=== PATIENT | female | born 1940 | race Caucasian/White ===

== ENCOUNTER 2018-09-17 13:54 | Inpatient (IN) | payer MEDICARE, OTHER ==
[2018-09-17] MEDS: IBUPROFEN 800 MG TAB PO (14:11)
[2018-09-17] MEDS: ACETAMINOPHEN 500 MG TAB PO (14:12)
[2018-09-17 14:15] LABS: ADD MAN DIFF? NO
[2018-09-17 14:20] LABS: WHITE BLOOD COUNT 18.3 10^3/ul (4.8-10.8)
[2018-09-17 14:20] LABS: BASOPHIL # 0.1 10^3/ul (0.0-0.1); BASOPHILS % 0.3 % (0.0-2.0); EOSINOPHILS # 0.1 10^3/ul (0.0-0.5); EOSINOPHILS % 0.3 % (0.0-7.0); HEMATOCRIT 40.2 % (37.0-47.0); HEMOGLOBIN 12.8 g/dl (12.0-16.0); LYMPHOCYTES # 1.3 10^3/ul (0.8-2.9); LYMPHOCYTES % 6.9 % (15.0-51.0); MEAN CORPUSCULAR HEMOGLOBIN 32.5 pg (29.0-33.0); MEAN CORPUSCULAR HGB CONC 31.8 g/dl (32.0-37.0); MEAN PLATELET VOLUME 10.3 fl (7.4-10.4); MONOCYTE # 0.6 10^3/ul (0.3-0.9); MONOCYTES % 3.2 % (0.0-11.0); NEUTROPHIL # 16.3 10^3/ul (1.6-7.5); NEUTROPHILS % 88.9 % (39.0-77.0); PLATELET COUNT 319 10^3/UL (140-415); RED BLOOD COUNT 3.94 10^6/ul (4.20-5.40); RED CELL DISTRIBUTION WIDTH 13.1 % (11.5-14.5)
[2018-09-17] MEDS: IPRATROPIUM (NEB) 0.5 MG/2.5 ML AMP INH (14:20)
[2018-09-17] MEDS: ALBUTEROL 0.5% (NEB) 2.5 MG/0.5 ML AMP INH (14:20)
[2018-09-17] MEDS: SODIUM CHLORIDE 0.9% 1L BAG IV* (14:31)
[2018-09-17] MEDS: METHYLPREDNISOLONE 125 MG INJ IV (14:32)
[2018-09-17] MEDS: VANCOMYCIN 1 GM (PMX) 250 ML IVPB (14:32)
[2018-09-17 14:36] LABS: PARTIAL THROMBOPLASTIN TIME 27.4 Sec (23.0-35.0)
[2018-09-17 14:39] LABS: INR 1.03; PROTIME 13.6 Sec (11.9-14.9); PT RATIO 1.1
[2018-09-17 14:42] LABS: ALANINE AMINOTRANSFERASE 25 IU/L (13-69); ALBUMIN 4.5 g/dl (3.3-4.9); ALBUMIN/GLOBULIN RATIO 1.15; ALKALINE PHOSPHATASE 69 IU/L (42-121); AMYLASE 95 U/L (11-123); ANION GAP 12 (5-13); ASPARTATE AMINO TRANSFERASE 30 IU/L (15-46); BILIRUBIN,INDIRECT 0.4 mg/dl (0-1.1); BILIRUBIN,TOTAL 0.4 mg/dl (0.2-1.3); BLOOD UREA NITROGEN 24 mg/dl (7-20); CALCIUM 8.3 mg/dl (8.4-10.2); CARBON DIOXIDE 30 mmol/L (21-31); CHLORIDE 100 mmol/L (97-110); GLUCOSE 160 mg/dl (70-220); LIPASE 33 U/L (23-300); POTASSIUM 4.1 mmol/L (3.5-5.1); SODIUM 142 mmol/L (135-144); TOTAL PROTEIN 8.4 g/dl (6.1-8.1)
[2018-09-17 14:45] LABS: LACTIC ACID 2.1 mmol/L (0.5-2.0)
[2018-09-17 14:46] LABS: Allen Test ACCEPTAB; Arterial Base Excess 0.1 mmol/L (-3.0-3); Arterial Blood Gas Oxygen Sat 85.2 mmHG (95.0-100.0); Arterial COHb 0.8 % (0.0-3.0); Arterial Fraction of Oxyhgb 84.5 % (93.0-99.0); Arterial HCO3 23.8 mmol/L (22.0-26.0); Arterial MetHb 0 % (0.0-1.5); Arterial Total Hemglobin 13.2 g/dl (12.0-18.0); Arterial pCO2 35.9 mmhg (35-45); MODE HFNC; Site Right Radial
[2018-09-17 14:53] LABS: TROPONIN-I < 0.012 ng/ml (0.000-0.120)
[2018-09-17] MEDS ORDERED: ONDANSETRON 4 MG INJ IV (16:30)
[2018-09-17] MEDS: CEFEPIME 2GM/50 ML (PMX) 50 ML IVPB (16:34)
[2018-09-17 16:37] LABS: LACTIC ACID 1.9 mmol/L (0.5-2.0)
[2018-09-17 16:47] LABS: AADO2 Arterial 602.1 mmHg (7.0-24.0); Allen Test ACCEPTAB; Arterial Base Excess 2.1 mmol/L (-3.0-3); Arterial Blood Gas Oxygen Sat 91.8 mmHG (95.0-100.0); Arterial COHb 0.1 % (0.0-3.0); Arterial Fraction of Oxyhgb 91.4 % (93.0-99.0); Arterial HCO3 27.1 mmol/L (22.0-26.0); Arterial MetHb 0.3 % (0.0-1.5); Arterial Total Hemglobin 12.4 g/dl (12.0-18.0); Arterial pCO2 43.9 mmhg (35-45); MODE HFNC; Site Right Radial
[2018-09-17 19:00] LABS: LACTIC ACID 2.3 mmol/L (0.5-2.0)
[2018-09-17] MEDS ORDERED: ACETAMINOPHEN/CODEINE #3 TAB PO (20:30)
[2018-09-17] MEDS: METOPROLOL 25 MG TAB PO (21:00)
[2018-09-17] MEDS: SOD CHLORIDE 0.9% 2,400 ML IV (21:25)
[2018-09-17] MEDS: ALBUTEROL HFA 8 GM INHALER INH (21:41)
[2018-09-17] MEDS: GABAPENTIN 400 MG CAP PO (21:41)
[2018-09-17] MEDS: QUETIAPINE 100 MG TAB PO (21:41)
[2018-09-17] MEDS: ASPIRIN (EC) 81 MG TAB PO (21:41)
[2018-09-17] MEDS: IBUPROFEN 600 MG TAB PO (21:42)
[2018-09-17] MEDS: AMLODIPINE 10 MG TAB PO (21:42)
[2018-09-17] MEDS: CHOLECALCIFEROL 2,000 UNIT CAP PO (21:42)
[2018-09-17] MEDS: ZOLPIDEM 5 MG TAB PO (21:45)
[2018-09-17] MEDS: DIAZEPAM 5 MG TAB PO (21:45)
[2018-09-17] MEDS: ISOSORBIDE MONONITRATE(SR)30 MG TAB PO (21:47)
[2018-09-17] MEDS: ENOXAPARIN 40 MG/0.4 ML SYG SC (21:47)
[2018-09-17] MEDS: SOD CHLORIDE 0.9% 1,000 ML IV (21:53)
[2018-09-17] MEDS: ACETAMINOPHEN 325 MG TAB PO (22:13)
[2018-09-17 22:56] LABS: ADD UMIC YES; UR ASCORBIC ACID NEGATIVE (NEGATIVE); UR BACTERIA FEW /HPF (NONE SEEN); UR BILIRUBIN (Dip) NEGATIVE (NEGATIVE); UR BLOOD (Dip) 1+ mg/dL (NEGATIVE); UR CLARITY CLOUDY (CLEAR); UR COLOR YELLOW (YELLOW); UR GLUCOSE (Dip) NEGATIVE (NEGATIVE); UR KETONES (Dip) NEGATIVE (NEGATIVE); UR LEUKOCYTE ESTERASE (Dip) 3+ Leu/ul (NEGATIVE); UR MUCUS FEW /HPF (NONE SEEN); UR NITRITE (Dip) NEGATIVE (NEGATIVE); UR NONSQUAMOUS EPITHELIAL CELL 4 /HPF (NONE SEEN); UR RBC 17 /HPF (0-5); UR SQUAMOUS EPITHELIAL CELL FEW /HPF (FEW); UR TOTAL PROTEIN (Dip) 2+ mg/dl (NEGATIVE); UR UROBILINOGEN (Dip) NEGATIVE (NEGATIVE); UR WBC > 182 /HPF (0-5)
[2018-09-17 22:57] LABS: IRON 16 ug/dl (35-150)
[2018-09-17] MEDS: PIPER-TAZO 3.375 GM IV (PMX) 100 ML IVPB (22:57)
[2018-09-17 23:06] LABS: LACTIC ACID 2.1 mmol/L (0.5-2.0)
[2018-09-17 23:07] LABS: % IRON SATURATION 5 % SAT (22-52); TOTAL IRON BINDING CAPACITY 307 ug/dl (241-421)
[2018-09-17 23:10] LABS: ALBUMIN 3.8 g/dl (3.3-4.9)
[2018-09-17 23:10] LABS: MAGNESIUM 1.3 mg/dl (1.7-2.5)
[2018-09-17 23:40] LABS: THYROID STIMULATING HORMONE 0.931 MIU/L (0.465-4.680)
[2018-09-18 05:02] LABS: ADD MAN DIFF? NO
[2018-09-18 05:08] LABS: WHITE BLOOD COUNT 16.2 10^3/ul (4.8-10.8)
[2018-09-18 05:08] LABS: BASOPHILS % 0.2 % (0.0-2.0); HEMATOCRIT 32.6 % (37.0-47.0); HEMOGLOBIN 10.4 g/dl (12.0-16.0); LYMPHOCYTES # 1.2 10^3/ul (0.8-2.9); LYMPHOCYTES % 7.1 % (15.0-51.0); MEAN CORPUSCULAR HEMOGLOBIN 32.3 pg (29.0-33.0); MEAN CORPUSCULAR HGB CONC 31.9 g/dl (32.0-37.0); MEAN CORPUSCULAR VOLUME 101.2 fl (82.0-101.0); MEAN PLATELET VOLUME 10.7 fl (7.4-10.4); MONOCYTE # 0.5 10^3/ul (0.3-0.9); MONOCYTES % 2.8 % (0.0-11.0); NEUTROPHIL # 14.5 10^3/ul (1.6-7.5); NEUTROPHILS % 89.2 % (39.0-77.0); PLATELET COUNT 254 10^3/UL (140-415); RED BLOOD COUNT 3.22 10^6/ul (4.20-5.40); RED CELL DISTRIBUTION WIDTH 13.1 % (11.5-14.5)
[2018-09-18 05:37] LABS: LACTIC ACID 1.4 mmol/L (0.5-2.0)
[2018-09-18 05:42] LABS: ANION GAP 9 (5-13); BLOOD UREA NITROGEN 22 mg/dl (7-20); CARBON DIOXIDE 27 mmol/L (21-31); CHLORIDE 105 mmol/L (97-110); CREATININE 0.78 mg/dl (0.44-1.00); GLUCOSE 112 mg/dl (70-220); POTASSIUM 4.2 mmol/L (3.5-5.1); SODIUM 141 mmol/L (135-144)
[2018-09-18] MEDS: ALBUTEROL HFA 8 GM INHALER INH ×4 (06:17→17:34)
[2018-09-18] MEDS: PANTOPRAZOLE (EC) 40 MG TAB PO (07:56)
[2018-09-18] MEDS: LEVOTHYROXINE 125 MCG TAB PO (07:56)
[2018-09-18] MEDS: ISOSORBIDE MONONITRATE(SR)30 MG TAB PO ×2 (09:00)
[2018-09-18] MEDS: AMLODIPINE 10 MG TAB PO ×2 (09:00)
[2018-09-18] MEDS: ASPIRIN (EC) 81 MG TAB PO (09:03)
[2018-09-18] MEDS: VANCOMYCIN 1 GM (PMX) 250 ML IVPB (09:03)
[2018-09-18] MEDS: GABAPENTIN 400 MG CAP PO ×4 (09:04→20:18)
[2018-09-18] MEDS: CHOLECALCIFEROL 2,000 UNIT CAP PO (09:04)
[2018-09-18] MEDS: METOPROLOL 25 MG TAB PO ×2 (09:04→20:18)
[2018-09-18] MEDS: IBUPROFEN 600 MG TAB PO ×3 (09:04→20:18)
[2018-09-18] MEDS: SOD CHLORIDE 0.9% 1,000 ML IV ×2 (09:05→22:00)
[2018-09-18] MEDS: PIPER-TAZO 3.375 GM IV (PMX) 100 ML IVPB ×2 (13:47→17:34)
[2018-09-18] MEDS: [UNRECOGNIZED DRUG - REMARK] XX ×2 (16:31→23:24)
[2018-09-18] MEDS: QUETIAPINE 100 MG TAB PO (20:17)
[2018-09-18] MEDS: SAVAYSA 30 MG PO (20:17)
[2018-09-18] MEDS: ZOLPIDEM 5 MG TAB PO (21:27)
[2018-09-18] MEDS: MAGNESIUM SULFATE 2 GM/50 ML 50 ML IVPB (21:27)
[2018-09-18] MEDS ORDERED: GLUCOSE GEL 15 GRAM TUBE PO ×2 (22:30)
[2018-09-18] MEDS ORDERED: GLUCOSE GEL 15 GRAM TUBE BUCCAL (22:30)
[2018-09-18] MEDS ORDERED: DEXTROSE 50% 50 ML SYRINGE IV ×2 (22:30)
[2018-09-18] MEDS ORDERED: GLUCAGON 1 MG INJ IM (22:30)
[2018-09-18] MEDS: DIAZEPAM 5 MG TAB PO (22:37)
[2018-09-18] MEDS: METHYLPREDNISOLONE 125 MG INJ IV (22:38)
[2018-09-18] MEDS: ALBUTEROL/IPRATROPIUM (NEB) 3 ML AMP HHN (22:43)
[2018-09-19] MEDS: PIPER-TAZO 3.375 GM IV (PMX) 100 ML IVPB ×4 (00:33→17:52)
[2018-09-19] MEDS: ALBUTEROL HFA 8 GM INHALER INH ×2 (00:34→05:48)
[2018-09-19 05:38] LABS: ABNORMAL IP MESSAGE 1; ADD MAN DIFF? NO; BASOPHILS % 0.1 % (0.0-2.0); HEMATOCRIT 32.1 % (37.0-47.0); HEMOGLOBIN 10.1 g/dl (12.0-16.0); LYMPHOCYTES # 0.5 10^3/ul (0.8-2.9); LYMPHOCYTES % 3.4 % (15.0-51.0); MEAN CORPUSCULAR HEMOGLOBIN 32.2 pg (29.0-33.0); MEAN CORPUSCULAR HGB CONC 31.5 g/dl (32.0-37.0); MEAN CORPUSCULAR VOLUME 102.2 fl (82.0-101.0); MEAN PLATELET VOLUME 11.5 fl (7.4-10.4); MONOCYTE # 0.2 10^3/ul (0.3-0.9); MONOCYTES % 1.1 % (0.0-11.0); NEUTROPHIL # 14.8 10^3/ul (1.6-7.5); NEUTROPHILS % 94.6 % (39.0-77.0); PLATELET COUNT 227 10^3/UL (140-415); RED BLOOD COUNT 3.14 10^6/ul (4.20-5.40); RED CELL DISTRIBUTION WIDTH 13.6 % (11.5-14.5)
[2018-09-19 05:38] LABS: WHITE BLOOD COUNT 15.7 10^3/ul (4.8-10.8)
[2018-09-19 05:40] LABS: POSITIVE DIFF @See below
[2018-09-19] MEDS: SOD CHLORIDE 0.9% 1,000 ML IV ×2 (05:48→21:32)
[2018-09-19 06:08] LABS: LACTIC ACID 1.4 mmol/L (0.5-2.0)
[2018-09-19] MEDS: PANTOPRAZOLE (EC) 40 MG TAB PO (06:27)
[2018-09-19] MEDS: LEVOTHYROXINE 125 MCG TAB PO (06:27)
[2018-09-19 06:32] LABS: ANION GAP 10 (5-13); BLOOD UREA NITROGEN 19 mg/dl (7-20); CALCIUM 6.6 mg/dl (8.4-10.2); CARBON DIOXIDE 27 mmol/L (21-31); CHLORIDE 106 mmol/L (97-110); CREATININE 0.86 mg/dl (0.44-1.00); GLUCOSE 161 mg/dl (70-220); MAGNESIUM 1.9 mg/dl (1.7-2.5); PHOSPHORUS 3.6 mg/dl (2.5-4.9); POTASSIUM 4.1 mmol/L (3.5-5.1); SODIUM 143 mmol/L (135-144)
[2018-09-19 07:22] LABS: AADO2 Arterial 244.8 mmHg (7.0-24.0); Allen Test ACCEPTAB; Arterial Base Excess 0.1 mmol/L (-3.0-3); Arterial Blood Gas Oxygen Sat 90.5 mmHG (95.0-100.0); Arterial COHb 0.4 % (0.0-3.0); Arterial HCO3 25.5 mmol/L (22.0-26.0); Arterial MetHb 0.1 % (0.0-1.5); Arterial Total Hemglobin 11.3 g/dl (12.0-18.0); MODE HFNC; Site Right Radial
[2018-09-19] MEDS: ALBUTEROL/IPRATROPIUM (NEB) 3 ML AMP HHN ×3 (08:00→20:40)
[2018-09-19] MEDS: IBUPROFEN 600 MG TAB PO ×3 (08:25→21:24)
[2018-09-19] MEDS: INSULIN ASPART [NOVOLOG] 3 ML PEN SC ×4 (08:25→20:53)
[2018-09-19] MEDS: ASPIRIN (EC) 81 MG TAB PO (08:26)
[2018-09-19] MEDS: GABAPENTIN 400 MG CAP PO ×4 (08:26→21:22)
[2018-09-19] MEDS: CHOLECALCIFEROL 2,000 UNIT CAP PO (08:26)
[2018-09-19] MEDS: MAGNESIUM SULFATE 2 GM/50 ML 50 ML IVPB (08:29)
[2018-09-19] MEDS: [UNRECOGNIZED DRUG - REMARK] XX (08:29)
[2018-09-19] MEDS: SAVAYSA 30 MG PO (08:29)
[2018-09-19] MEDS: VANCOMYCIN 1 GM (PMX) 250 ML IVPB (08:31)
[2018-09-19] MEDS: AMLODIPINE 10 MG TAB PO (08:32)
[2018-09-19] MEDS: METOPROLOL 25 MG TAB PO ×2 (08:32→21:23)
[2018-09-19] MEDS: ISOSORBIDE MONONITRATE(SR)30 MG TAB PO (08:32)
[2018-09-19] MEDS: INFLUENZA VIRUS VACCINE 0.5 ML (DISPENSING) IM* (10:32)
[2018-09-19] MEDS: SOD FERRIC GLUC COMPLX 125 MG in SOD CHLORIDE 0.9% 100 ML IVPB (16:25)
[2018-09-19] MEDS: METHYLPREDNISOLONE 125 MG INJ IV (21:23)
[2018-09-19] MEDS: ZOLPIDEM 5 MG TAB PO (21:24)
[2018-09-19] MEDS: QUETIAPINE 100 MG TAB PO (21:24)
[2018-09-20] MEDS: ALBUTEROL/IPRATROPIUM (NEB) 3 ML AMP HHN ×4 (01:25→20:12)
[2018-09-20] MEDS: PIPER-TAZO 3.375 GM IV (PMX) 100 ML IVPB ×4 (02:03→18:14)
[2018-09-20] MEDS: SOD CHLORIDE 0.9% 1,000 ML IV (03:18)
[2018-09-20] MEDS: LEVOTHYROXINE 125 MCG TAB PO (06:19)
[2018-09-20 06:34] LABS: ADD MAN DIFF? NO
[2018-09-20 06:40] LABS: WHITE BLOOD COUNT 11.9 10^3/ul (4.8-10.8)
[2018-09-20 06:40] LABS: BASOPHILS % 0.1 % (0.0-2.0); HEMATOCRIT 30.8 % (37.0-47.0); HEMOGLOBIN 9.7 g/dl (12.0-16.0); LYMPHOCYTES % 8.6 % (15.0-51.0); MEAN CORPUSCULAR HGB CONC 31.5 g/dl (32.0-37.0); MEAN CORPUSCULAR VOLUME 101.7 fl (82.0-101.0); MONOCYTE # 0.3 10^3/ul (0.3-0.9); MONOCYTES % 2.4 % (0.0-11.0); NEUTROPHIL # 10.4 10^3/ul (1.6-7.5); NEUTROPHILS % 87.8 % (39.0-77.0); PLATELET COUNT 224 10^3/UL (140-415); RED BLOOD COUNT 3.03 10^6/ul (4.20-5.40); RED CELL DISTRIBUTION WIDTH 13.5 % (11.5-14.5)
[2018-09-20 07:06] LABS: ANION GAP 11 (5-13); BLOOD UREA NITROGEN 19 mg/dl (7-20); CALCIUM 7.3 mg/dl (8.4-10.2); CARBON DIOXIDE 27 mmol/L (21-31); CHLORIDE 106 mmol/L (97-110); CREATININE 0.88 mg/dl (0.44-1.00); GLUCOSE 145 mg/dl (70-220); SODIUM 144 mmol/L (135-144)
[2018-09-20] MEDS: INSULIN ASPART [NOVOLOG] 3 ML PEN SC ×4 (07:52→20:30)
[2018-09-20] MEDS: PANTOPRAZOLE (EC) 40 MG TAB PO (07:52)
[2018-09-20] MEDS: VANCOMYCIN 1 GM (PMX) 250 ML IVPB (08:44)
[2018-09-20] MEDS: SAVAYSA 30 MG PO (08:48)
[2018-09-20] MEDS: ASPIRIN (EC) 81 MG TAB PO (08:49)
[2018-09-20] MEDS: ISOSORBIDE MONONITRATE(SR)30 MG TAB PO (08:49)
[2018-09-20] MEDS: CHOLECALCIFEROL 2,000 UNIT CAP PO (08:49)
[2018-09-20] MEDS: IBUPROFEN 600 MG TAB PO ×3 (08:49→20:27)
[2018-09-20] MEDS: GABAPENTIN 400 MG CAP PO ×4 (08:49→20:27)
[2018-09-20] MEDS: AMLODIPINE 10 MG TAB PO (08:50)
[2018-09-20] MEDS: METOPROLOL 25 MG TAB PO ×2 (08:50→20:28)
[2018-09-20] MEDS: MAGNESIUM SULFATE 2 GM/50 ML 50 ML IVPB (11:14)
[2018-09-20] MEDS: SOD FERRIC GLUC COMPLX 125 MG in SOD CHLORIDE 0.9% 100 ML IVPB (16:32)
[2018-09-20] MEDS: QUETIAPINE 100 MG TAB PO (20:27)
[2018-09-20] MEDS: METHYLPREDNISOLONE 40 MG INJ IV (22:16)
[2018-09-20] MEDS: DIAZEPAM 5 MG TAB PO (22:16)
[2018-09-20] MEDS: ZOLPIDEM 5 MG TAB PO (22:16)
[2018-09-20] MEDS: HYDROCODONE/APAP (5/325) TAB PO (23:43)
[2018-09-21] MEDS: SOD CHLORIDE 0.9% 1,000 ML IV ×2 (00:33→12:30)
[2018-09-21] MEDS: PIPER-TAZO 3.375 GM IV (PMX) 100 ML IVPB ×4 (00:33→18:43)
[2018-09-21] MEDS: ALBUTEROL/IPRATROPIUM (NEB) 3 ML AMP HHN ×4 (02:00→20:47)
[2018-09-21] MEDS: LEVOTHYROXINE 125 MCG TAB PO (05:45)
[2018-09-21] MEDS: INSULIN ASPART [NOVOLOG] 3 ML PEN SC ×4 (07:55→20:33)
[2018-09-21] MEDS: AMLODIPINE 10 MG TAB PO (08:02)
[2018-09-21] MEDS: PANTOPRAZOLE (EC) 40 MG TAB PO (08:02)
[2018-09-21] MEDS: CHOLECALCIFEROL 2,000 UNIT CAP PO (08:02)
[2018-09-21] MEDS: ISOSORBIDE MONONITRATE(SR)30 MG TAB PO (08:03)
[2018-09-21] MEDS: GABAPENTIN 400 MG CAP PO ×4 (08:03→20:32)
[2018-09-21] MEDS: IBUPROFEN 600 MG TAB PO ×3 (08:04→20:31)
[2018-09-21] MEDS: METOPROLOL 25 MG TAB PO ×2 (08:05→20:32)
[2018-09-21] MEDS: ASPIRIN (EC) 81 MG TAB PO (08:05)
[2018-09-21] MEDS: SAVAYSA 30 MG PO (08:06)
[2018-09-21] MEDS: VANCOMYCIN 1 GM (PMX) 250 ML IVPB ×2 (08:06→09:20)
[2018-09-21 08:09] LABS: ADD MAN DIFF? NO
[2018-09-21 08:13] LABS: BASOPHILS % 0.2 % (0.0-2.0); HEMATOCRIT 32.1 % (37.0-47.0); LYMPHOCYTES # 1.4 10^3/ul (0.8-2.9); LYMPHOCYTES % 12.8 % (15.0-51.0); MEAN CORPUSCULAR HEMOGLOBIN 31.7 pg (29.0-33.0); MEAN CORPUSCULAR HGB CONC 31.2 g/dl (32.0-37.0); MEAN CORPUSCULAR VOLUME 101.9 fl (82.0-101.0); MEAN PLATELET VOLUME 11.7 fl (7.4-10.4); MONOCYTE # 0.4 10^3/ul (0.3-0.9); MONOCYTES % 3.4 % (0.0-11.0); NEUTROPHIL # 8.7 10^3/ul (1.6-7.5); NEUTROPHILS % 82.6 % (39.0-77.0); PLATELET COUNT 239 10^3/UL (140-415); RED BLOOD COUNT 3.15 10^6/ul (4.20-5.40); RED CELL DISTRIBUTION WIDTH 13.3 % (11.5-14.5)
[2018-09-21 08:13] LABS: WHITE BLOOD COUNT 10.5 10^3/ul (4.8-10.8)
[2018-09-21 08:23] LABS: AADO2 Arterial 155.4 mmHg (7.0-24.0); Arterial Base Excess 4.6 mmol/L (-3.0-3); Arterial Blood Gas Oxygen Sat 93.6 mmHG (95.0-100.0); Arterial COHb 0.7 % (0.0-3.0); Arterial Fraction of Oxyhgb 92.7 % (93.0-99.0); Arterial HCO3 30.1 mmol/L (22.0-26.0); Arterial MetHb 0.3 % (0.0-1.5); Arterial Total Hemglobin 11.2 g/dl (12.0-18.0); MODE HFNC; Site LB
[2018-09-21 08:26] LABS: ANION GAP 9 (5-13); BLOOD UREA NITROGEN 17 mg/dl (7-20); CALCIUM 7.4 mg/dl (8.4-10.2); CARBON DIOXIDE 29 mmol/L (21-31); CHLORIDE 104 mmol/L (97-110); CREATININE 0.77 mg/dl (0.44-1.00); GLUCOSE 106 mg/dl (70-220); POTASSIUM 4.1 mmol/L (3.5-5.1); SODIUM 142 mmol/L (135-144)
[2018-09-21 08:54] LABS: VANCOMYCIN,TROUGH 6.9 ug/ml (10.0-20.0)
[2018-09-21] MEDS: VANCOMYCIN 500MG/NS (PMX) 100 ML IVPB (13:25)
[2018-09-21] MEDS: SOD FERRIC GLUC COMPLX 125 MG in SOD CHLORIDE 0.9% 100 ML IVPB (17:27)
[2018-09-21] MEDS: QUETIAPINE 100 MG TAB PO (20:31)
[2018-09-21] MEDS: DIAZEPAM 5 MG TAB PO (20:31)
[2018-09-21] MEDS: ZOLPIDEM 5 MG TAB PO (20:33)
[2018-09-21] MEDS: METHYLPREDNISOLONE 40 MG INJ IV (20:33)
[2018-09-22] MEDS: PIPER-TAZO 3.375 GM IV (PMX) 100 ML IVPB ×3 (00:20→12:34)
[2018-09-22] MEDS: SOD CHLORIDE 0.9% 1,000 ML IV ×2 (00:22→13:32)
[2018-09-22] MEDS: ALBUTEROL/IPRATROPIUM (NEB) 3 ML AMP HHN ×4 (01:37→20:34)
[2018-09-22] MEDS: PANTOPRAZOLE (EC) 40 MG TAB PO (05:53)
[2018-09-22] MEDS: LEVOTHYROXINE 125 MCG TAB PO (05:54)
[2018-09-22 06:08] LABS: ADD MAN DIFF? NO
[2018-09-22 06:10] LABS: BASOPHILS % 0.2 % (0.0-2.0); EOSINOPHILS % 0.1 % (0.0-7.0); HEMATOCRIT 34.7 % (37.0-47.0); HEMOGLOBIN 10.9 g/dl (12.0-16.0); LYMPHOCYTES # 1.5 10^3/ul (0.8-2.9); MEAN CORPUSCULAR HEMOGLOBIN 31.8 pg (29.0-33.0); MEAN CORPUSCULAR HGB CONC 31.4 g/dl (32.0-37.0); MEAN CORPUSCULAR VOLUME 101.2 fl (82.0-101.0); MONOCYTE # 0.4 10^3/ul (0.3-0.9); MONOCYTES % 3.7 % (0.0-11.0); NEUTROPHIL # 8.5 10^3/ul (1.6-7.5); NEUTROPHILS % 80.8 % (39.0-77.0); PLATELET COUNT 285 10^3/UL (140-415); RED BLOOD COUNT 3.43 10^6/ul (4.20-5.40); RED CELL DISTRIBUTION WIDTH 13.2 % (11.5-14.5)
[2018-09-22 06:10] LABS: WHITE BLOOD COUNT 10.5 10^3/ul (4.8-10.8)
[2018-09-22 06:45] LABS: ANION GAP 9 (5-13); BLOOD UREA NITROGEN 21 mg/dl (7-20); CALCIUM 8.1 mg/dl (8.4-10.2); CARBON DIOXIDE 31 mmol/L (21-31); CHLORIDE 100 mmol/L (97-110); CREATININE 0.66 mg/dl (0.44-1.00); GLUCOSE 123 mg/dl (70-220); SODIUM 140 mmol/L (135-144)
[2018-09-22] MEDS: INSULIN ASPART [NOVOLOG] 3 ML PEN SC ×4 (07:52→20:40)
[2018-09-22] MEDS: AMLODIPINE 10 MG TAB PO (08:51)
[2018-09-22] MEDS: GABAPENTIN 400 MG CAP PO ×4 (08:51→20:40)
[2018-09-22] MEDS: ASPIRIN (EC) 81 MG TAB PO (08:51)
[2018-09-22] MEDS: ISOSORBIDE MONONITRATE(SR)30 MG TAB PO (08:52)
[2018-09-22] MEDS: IBUPROFEN 600 MG TAB PO ×4 (08:52→20:39)
[2018-09-22] MEDS: CHOLECALCIFEROL 2,000 UNIT CAP PO (08:52)
[2018-09-22] MEDS: METOPROLOL 25 MG TAB PO ×2 (08:53→20:39)
[2018-09-22] MEDS: SAVAYSA 30 MG PO (08:54)
[2018-09-22] MEDS ORDERED: VANCOMYCIN 1.25 GM in SOD CHLORIDE 0.9% 250 ML IVPB (13:00)
[2018-09-22] MEDS: CEFTRIAXONE 1 GM/50 ML (PMX) 50 ML IVPB (16:38)
[2018-09-22] MEDS: SOD FERRIC GLUC COMPLX 125 MG in SOD CHLORIDE 0.9% 100 ML IVPB (17:12)
[2018-09-22] MEDS: ZOLPIDEM 5 MG TAB PO (20:40)
[2018-09-22] MEDS: QUETIAPINE 100 MG TAB PO (20:40)
[2018-09-23] MEDS: ALBUTEROL/IPRATROPIUM (NEB) 3 ML AMP HHN ×4 (02:00→21:02)
[2018-09-23] MEDS: SOD CHLORIDE 0.9% 1,000 ML IV ×2 (02:54→14:30)
[2018-09-23] MEDS: LEVOTHYROXINE 125 MCG TAB PO (06:09)
[2018-09-23] MEDS: PANTOPRAZOLE (EC) 40 MG TAB PO (06:09)
[2018-09-23] MEDS: INSULIN ASPART [NOVOLOG] 3 ML PEN SC ×4 (07:55→21:00)
[2018-09-23] MEDS: ASPIRIN (EC) 81 MG TAB PO (10:21)
[2018-09-23] MEDS: IBUPROFEN 600 MG TAB PO ×3 (10:21→21:17)
[2018-09-23] MEDS: AMLODIPINE 10 MG TAB PO (10:22)
[2018-09-23] MEDS: ISOSORBIDE MONONITRATE(SR)30 MG TAB PO (10:22)
[2018-09-23] MEDS: CHOLECALCIFEROL 2,000 UNIT CAP PO (10:22)
[2018-09-23] MEDS: METOPROLOL 25 MG TAB PO ×2 (10:23→21:19)
[2018-09-23] MEDS: GABAPENTIN 400 MG CAP PO ×4 (10:23→21:17)
[2018-09-23] MEDS: SAVAYSA 30 MG PO (10:31)
[2018-09-23] MEDS: CEFTRIAXONE 1 GM/50 ML (PMX) 50 ML IVPB (16:00)
[2018-09-23] MEDS: SOD FERRIC GLUC COMPLX 125 MG in SOD CHLORIDE 0.9% 100 ML IVPB (17:20)
[2018-09-23] MEDS: HYDROCORTISONE 250 MG INJ IV (21:16)
[2018-09-23] MEDS: QUETIAPINE 100 MG TAB PO (21:17)
[2018-09-23] MEDS: ZOLPIDEM 5 MG TAB PO (21:34)
[2018-09-24] MEDS: ALBUTEROL/IPRATROPIUM (NEB) 3 ML AMP HHN ×4 (02:00→20:33)
[2018-09-24] MEDS: SOD CHLORIDE 0.9% 1,000 ML IV ×3 (03:00→19:16)
[2018-09-24] MEDS: HYDROCORTISONE 250 MG INJ IV (06:27)
[2018-09-24] MEDS: LEVOTHYROXINE 125 MCG TAB PO (06:28)
[2018-09-24] MEDS: INSULIN ASPART [NOVOLOG] 3 ML PEN SC ×4 (07:55→20:48)
[2018-09-24] MEDS: PANTOPRAZOLE (EC) 40 MG TAB PO (08:30)
[2018-09-24] MEDS: ISOSORBIDE MONONITRATE(SR)30 MG TAB PO (08:31)
[2018-09-24] MEDS: ASPIRIN (EC) 81 MG TAB PO (08:31)
[2018-09-24] MEDS: SAVAYSA 30 MG PO (08:31)
[2018-09-24] MEDS: GABAPENTIN 400 MG CAP PO ×4 (08:31→20:42)
[2018-09-24] MEDS: AMLODIPINE 10 MG TAB PO (08:32)
[2018-09-24] MEDS: METOPROLOL 25 MG TAB PO ×2 (08:32→20:42)
[2018-09-24] MEDS: CHOLECALCIFEROL 2,000 UNIT CAP PO (08:32)
[2018-09-24] MEDS: IBUPROFEN 600 MG TAB PO ×3 (08:32→20:42)
[2018-09-24] MEDS: CEFTRIAXONE 1 GM/50 ML (PMX) 50 ML IVPB (16:23)
[2018-09-24] MEDS: QUETIAPINE 100 MG TAB PO (20:42)
[2018-09-24] MEDS: ZOLPIDEM 5 MG TAB PO (20:58)
[2018-09-24] MEDS: DIAZEPAM 5 MG TAB PO (21:37)
[2018-09-25] MEDS: ALBUTEROL/IPRATROPIUM (NEB) 3 ML AMP HHN ×4 (02:00→19:55)
[2018-09-25] MEDS: SOD CHLORIDE 0.9% 1,000 ML IV ×2 (04:00→06:02)
[2018-09-25 05:53] LABS: AADO2 Arterial 135.6 mmHg (7.0-24.0); Allen Test ACCEPTAB; Arterial Base Excess 4.5 mmol/L (-3.0-3); Arterial Blood Gas Oxygen Sat 92.9 mmHG (95.0-100.0); Arterial COHb 0.1 % (0.0-3.0); Arterial Fraction of Oxyhgb 92.5 % (93.0-99.0); Arterial HCO3 29.6 mmol/L (22.0-26.0); Arterial MetHb 0.3 % (0.0-1.5); Arterial pCO2 46.4 mmhg (35-45); MODE NASAL CANNULA; Site Right Radial
[2018-09-25] MEDS: LEVOTHYROXINE 125 MCG TAB PO (06:02)
[2018-09-25] MEDS: INSULIN ASPART [NOVOLOG] 3 ML PEN SC ×4 (07:55→20:15)
[2018-09-25] MEDS: HYDROCORTISONE 100 MG INJ IV (07:57)
[2018-09-25] MEDS: PANTOPRAZOLE (EC) 40 MG TAB PO (07:57)
[2018-09-25] MEDS: SAVAYSA 30 MG PO (07:58)
[2018-09-25] MEDS: ASPIRIN (EC) 81 MG TAB PO (07:58)
[2018-09-25] MEDS: ISOSORBIDE MONONITRATE(SR)30 MG TAB PO (08:03)
[2018-09-25] MEDS: METOPROLOL 25 MG TAB PO ×2 (08:03→20:13)
[2018-09-25] MEDS: CHOLECALCIFEROL 2,000 UNIT CAP PO (08:04)
[2018-09-25] MEDS: IBUPROFEN 600 MG TAB PO ×3 (08:04→20:13)
[2018-09-25] MEDS: AMLODIPINE 10 MG TAB PO (08:04)
[2018-09-25] MEDS: GABAPENTIN 400 MG CAP PO ×4 (08:04→20:12)
[2018-09-25] MEDS: QUETIAPINE 100 MG TAB PO (20:13)
[2018-09-25] MEDS: DIAZEPAM 5 MG TAB PO (20:19)
[2018-09-25] MEDS: ZOLPIDEM 5 MG TAB PO (20:22)
[2018-09-26] MEDS: ALBUTEROL/IPRATROPIUM (NEB) 3 ML AMP HHN ×4 (02:00→20:00)
[2018-09-26] MEDS: SOD CHLORIDE 0.9% 1,000 ML IV ×2 (03:56→17:30)
[2018-09-26] MEDS: INSULIN ASPART [NOVOLOG] 3 ML PEN SC ×3 (07:55→17:30)
[2018-09-26] MEDS: CHOLECALCIFEROL 2,000 UNIT CAP PO (07:55)
[2018-09-26] MEDS: PANTOPRAZOLE (EC) 40 MG TAB PO (07:55)
[2018-09-26] MEDS: ISOSORBIDE MONONITRATE(SR)30 MG TAB PO (07:56)
[2018-09-26] MEDS: METOPROLOL 25 MG TAB PO (07:56)
[2018-09-26] MEDS: GABAPENTIN 400 MG CAP PO ×3 (07:58→16:55)
[2018-09-26] MEDS: ASPIRIN (EC) 81 MG TAB PO (07:58)
[2018-09-26] MEDS: AMLODIPINE 10 MG TAB PO (07:58)
[2018-09-26] MEDS: IBUPROFEN 600 MG TAB PO ×2 (07:58→13:00)
[2018-09-26] MEDS: LEVOTHYROXINE 125 MCG TAB PO (07:59)
[2018-09-26] MEDS: SAVAYSA 30 MG PO (07:59)
[2018-09-26] MEDS: HYDROCORTISONE 100 MG INJ IV (18:30)
== END 2018-09-26 21:20 | disposition home or self-care (01) | DRG 871 ==
LOC: TEL 09-19 16:47 → E/R 13:54 → ICU 16:20
DX: A41.9 Sepsis, unspecified organism (principal); J18.9 Pneumonia, unspecified organism; J96.21 Acute and chronic respiratory failure with hypoxia; J44.1 Chronic obstructive pulmonary disease with (acute) exacerbation; N39.0 Urinary tract infection, site not specified; E87.2 Acidosis; J98.11 Atelectasis; R65.20 Severe sepsis without septic shock; Z99.81 Dependence on supplemental oxygen; Z72.0 Tobacco use; R32 Unspecified urinary incontinence; E11.9 Type 2 diabetes mellitus without complications; K21.9 Gastro-esophageal reflux disease without esophagitis; G47.00 Insomnia, unspecified; E03.9 Hypothyroidism, unspecified; L40.9 Psoriasis, unspecified
CPT/HCPCS: 36600; 71045; 80048; 80053; 80202; 81001; 82040; 82150; 82803; 82962; 83540; 83605; 83690; 83735; 84100; 84443; 84484; 85025; 85610; 85730; 87040; 87081; 87086; 87400; 90686; 93005; 94640; 94644; 94664; 96374; 96375; 97110; 97162; 99291-25

== ENCOUNTER 2019-02-08 17:52 | Inpatient (IN) | payer MEDICARE, OTHER ==
[2019-02-08 18:48] LABS: ADD MAN DIFF? NO
[2019-02-08] MEDS: IPRATROPIUM (NEB) 0.5 MG/2.5 ML AMP INH (18:53)
[2019-02-08] MEDS: ALBUTEROL 0.5% (NEB) 2.5 MG/0.5 ML AMP INH (18:53)
[2019-02-08] MEDS: METHYLPREDNISOLONE 125 MG INJ IV (18:53)
[2019-02-08] MEDS: SOD CHLORIDE 0.9% 500 ML IV (18:53)
[2019-02-08 19:02] LABS: WHITE BLOOD COUNT 16.3 10^3/ul (4.8-10.8)
[2019-02-08 19:02] LABS: BASOPHIL # 0.1 10^3/ul (0.0-0.1); BASOPHILS % 0.4 % (0.0-2.0); EOSINOPHILS # 0.1 10^3/ul (0.0-0.5); EOSINOPHILS % 0.4 % (0.0-7.0); HEMATOCRIT 37.2 % (37.0-47.0); HEMOGLOBIN 12.3 g/dl (12.0-16.0); LYMPHOCYTES # 1.9 10^3/ul (0.8-2.9); LYMPHOCYTES % 11.5 % (15.0-51.0); MEAN CORPUSCULAR HEMOGLOBIN 32.3 pg (29.0-33.0); MEAN CORPUSCULAR HGB CONC 33.1 g/dl (32.0-37.0); MEAN CORPUSCULAR VOLUME 97.6 fl (82.0-101.0); MEAN PLATELET VOLUME 11.7 fl (7.4-10.4); MONOCYTE # 0.9 10^3/ul (0.3-0.9); MONOCYTES % 5.7 % (0.0-11.0); NEUTROPHIL # 13.3 10^3/ul (1.6-7.5); NEUTROPHILS % 81.5 % (39.0-77.0); PLATELET COUNT 230 10^3/UL (140-415); RED BLOOD COUNT 3.81 10^6/ul (4.20-5.40); RED CELL DISTRIBUTION WIDTH 13.1 % (11.5-14.5)
[2019-02-08 19:18] LABS: ALANINE AMINOTRANSFERASE 29 IU/L (13-69); ALBUMIN 4.3 g/dl (3.3-4.9); ALBUMIN/GLOBULIN RATIO 1.34; ALKALINE PHOSPHATASE 51 IU/L (42-121); ANION GAP 14 (5-13); ASPARTATE AMINO TRANSFERASE 24 IU/L (15-46); BILIRUBIN,INDIRECT 0.4 mg/dl (0-1.1); BILIRUBIN,TOTAL 0.4 mg/dl (0.2-1.3); BLOOD UREA NITROGEN 18 mg/dl (7-20); CALCIUM 6.8 mg/dl (8.4-10.2); CARBON DIOXIDE 23 mmol/L (21-31); CHLORIDE 107 mmol/L (97-110); CREATININE 0.87 mg/dl (0.44-1.00); GLUCOSE 107 mg/dl (70-220); LIPASE 36 U/L (23-300); POTASSIUM 3.6 mmol/L (3.5-5.1); SODIUM 144 mmol/L (135-144); TOTAL PROTEIN 7.5 g/dl (6.1-8.1)
[2019-02-08 19:29] LABS: B-TYPE NATRIURETIC PEPTIDE 158 PG/ML (0-450); TROPONIN-I < 0.012 ng/ml (0.000-0.120)
[2019-02-08 19:34] LABS: ADD UMIC YES; UR ASCORBIC ACID NEGATIVE (NEGATIVE); UR BACTERIA FEW /HPF (NONE SEEN); UR BILIRUBIN (Dip) NEGATIVE (NEGATIVE); UR BLOOD (Dip) 1+ mg/dL (NEGATIVE); UR BUDDING YEAST FEW /HPF (NONE SEEN); UR CLARITY SLIGHTLY CLOUDY (CLEAR); UR COLOR YELLOW (YELLOW); UR GLUCOSE (Dip) NEGATIVE (NEGATIVE); UR KETONES (Dip) NEGATIVE (NEGATIVE); UR LEUKOCYTE ESTERASE (Dip) 3+ Leu/ul (NEGATIVE); UR NITRITE (Dip) POSITIVE (NEGATIVE); UR RBC 2 /HPF (0-5); UR SPECIFIC GRAVITY (Dip) 1.008 (1.003-1.030); UR TOTAL PROTEIN (Dip) NEGATIVE (NEGATIVE); UR UROBILINOGEN (Dip) NEGATIVE (NEGATIVE); UR WBC 165 /HPF (0-5)
[2019-02-08] MEDS: CEFTRIAXONE 1 GM/50 ML (PMX) 50 ML IVPB (20:10)
[2019-02-08] MEDS: LORAZEPAM 2 MG INJ IV (23:48)
[2019-02-08] MEDS: QUETIAPINE 100 MG TAB PO (23:48)
[2019-02-09] MEDS: ZOLPIDEM 5 MG TAB PO ×2 (04:40→21:58)
[2019-02-09] MEDS: METHYLPREDNISOLONE 125 MG INJ IV ×2 (04:40→23:02)
[2019-02-09] MEDS ORDERED: ACETAMINOPHEN/CODEINE #3 TAB PO (22:30)
[2019-02-09] MEDS ORDERED: ERGOCALCIFEROL 50,000 UNIT CAP PO (22:30)
[2019-02-09] MEDS ORDERED: ZOLPIDEM 5 MG TAB PO (22:30)
[2019-02-09] MEDS ORDERED: ALBUTEROL/IPRATROPIUM (NEB) 3 ML AMP HHN (23:00)
[2019-02-09] MEDS ORDERED: HYDROCODONE/APAP (5/325) TAB PO (23:00)
[2019-02-09] MEDS: LEVOFLOXACIN 500MG/D5W (PMX) 100 ML IVPB (23:00)
[2019-02-09] MEDS: GABAPENTIN 400 MG CAP PO (23:02)
[2019-02-09] MEDS: METOPROLOL 25 MG TAB PO (23:02)
[2019-02-09] MEDS: ALBUTEROL/IPRATROPIUM (NEB) 3 ML AMP HHN ×2 (23:11→23:45)
[2019-02-09] MEDS: QUETIAPINE 100 MG TAB PO (23:18)
[2019-02-10] MEDS: PANTOPRAZOLE (EC) 40 MG TAB PO (07:25)
[2019-02-10] MEDS: LEVOTHYROXINE 125 MCG TAB PO (07:25)
[2019-02-10] MEDS: ALBUTEROL/IPRATROPIUM (NEB) 3 ML AMP HHN ×3 (08:20→23:01)
[2019-02-10] MEDS: GABAPENTIN 400 MG CAP PO ×2 (09:08→20:54)
[2019-02-10] MEDS: METHYLPREDNISOLONE 125 MG INJ IV (09:08)
[2019-02-10] MEDS: FERROUS SULFATE (EC) 325 MG TAB PO (09:08)
[2019-02-10] MEDS: METOPROLOL 25 MG TAB PO ×2 (09:08→20:55)
[2019-02-10] MEDS: SOLIFENACIN 5 MG TAB PO (09:10)
[2019-02-10] MEDS: ASPIRIN (EC) 81 MG TAB PO (09:11)
[2019-02-10] MEDS: AMLODIPINE 10 MG TAB PO (09:11)
[2019-02-10] MEDS: RIVAROXABAN 10 MG TABLET PO (09:11)
[2019-02-10] MEDS: ISOSORBIDE MONONITRATE(SR)30 MG TAB PO (09:11)
[2019-02-10] MEDS: IBUPROFEN 600 MG TAB PO (17:15)
[2019-02-10] MEDS: morphine 2 MG INJ IV (18:28)
[2019-02-10] MEDS ORDERED: ENOXAPARIN 100 MG/ML SYG SC (18:30)
[2019-02-10] MEDS ORDERED: ATORVASTATIN 40 MG TAB (19:57)
[2019-02-10 20:06] LABS: TROPONIN-I < 0.012 ng/ml (0.000-0.120)
[2019-02-10] MEDS: ATORVASTATIN 40 MG TAB PO (20:55)
[2019-02-10] MEDS: ZOLPIDEM 5 MG TAB PO (20:55)
[2019-02-10] MEDS: QUETIAPINE 100 MG TAB PO (20:55)
[2019-02-10] MEDS ORDERED: QUETIAPINE 100 MG TAB PO (21:00)
[2019-02-10] MEDS ORDERED: NITROGLYCERIN 2% 1 GM OINT PKT (21:03)
[2019-02-10] MEDS: NITROGLYCERIN 2% 1 GM OINT PKT TD (21:06)
[2019-02-10] MEDS: LEVOFLOXACIN 500MG/D5W (PMX) 100 ML IVPB (22:15)
[2019-02-11] MEDS: PANTOPRAZOLE (EC) 40 MG TAB PO (06:14)
[2019-02-11] MEDS: NITROGLYCERIN 2% 1 GM OINT PKT TD ×2 (06:14→15:15)
[2019-02-11] MEDS: LEVOTHYROXINE 125 MCG TAB PO (06:15)
[2019-02-11 06:27] LABS: ADD MAN DIFF? NO
[2019-02-11 06:41] LABS: WHITE BLOOD COUNT 14.3 10^3/ul (4.8-10.8)
[2019-02-11 06:41] LABS: BASOPHILS % 0.1 % (0.0-2.0); HEMATOCRIT 36.8 % (37.0-47.0); HEMOGLOBIN 12.1 g/dl (12.0-16.0); LYMPHOCYTES % 13.7 % (15.0-51.0); MEAN CORPUSCULAR HEMOGLOBIN 32.7 pg (29.0-33.0); MEAN CORPUSCULAR HGB CONC 32.9 g/dl (32.0-37.0); MEAN CORPUSCULAR VOLUME 99.5 fl (82.0-101.0); MEAN PLATELET VOLUME 11.7 fl (7.4-10.4); MONOCYTE # 0.6 10^3/ul (0.3-0.9); NEUTROPHIL # 11.6 10^3/ul (1.6-7.5); NEUTROPHILS % 81.4 % (39.0-77.0); PLATELET COUNT 232 10^3/UL (140-415)
[2019-02-11 07:11] LABS: IRON 144 ug/dl (35-150)
[2019-02-11 07:14] LABS: ALANINE AMINOTRANSFERASE 19 IU/L (13-69); ALBUMIN 3.8 g/dl (3.3-4.9); ALBUMIN/GLOBULIN RATIO 1.15; ALKALINE PHOSPHATASE 32 IU/L (42-121); ANION GAP 13 (5-13); ASPARTATE AMINO TRANSFERASE 16 IU/L (15-46); BILIRUBIN,INDIRECT 0.4 mg/dl (0-1.1); BILIRUBIN,TOTAL 0.4 mg/dl (0.2-1.3); BLOOD UREA NITROGEN 24 mg/dl (7-20); CALCIUM 6.8 mg/dl (8.4-10.2); CARBON DIOXIDE 26 mmol/L (21-31); CHLORIDE 104 mmol/L (97-110); CREATININE 0.85 mg/dl (0.44-1.00); GLUCOSE 112 mg/dl (70-220); POTASSIUM 3.6 mmol/L (3.5-5.1); SODIUM 143 mmol/L (135-144); TOTAL PROTEIN 7.1 g/dl (6.1-8.1)
[2019-02-11 07:18] LABS: MAGNESIUM 0.9 mg/dl (1.7-2.5)
[2019-02-11 07:20] LABS: % IRON SATURATION 51 % SAT (22-52); TOTAL IRON BINDING CAPACITY 282 ug/dl (241-421)
[2019-02-11] MEDS: ALBUTEROL/IPRATROPIUM (NEB) 3 ML AMP HHN ×2 (08:33→16:15)
[2019-02-11] MEDS: METOPROLOL 25 MG TAB PO ×2 (09:00→21:00)
[2019-02-11] MEDS: MAGNESIUM SULFATE 2 GM/50 ML 50 ML IVPB (09:02)
[2019-02-11] MEDS: GABAPENTIN 400 MG CAP PO ×2 (09:03→20:41)
[2019-02-11] MEDS: FERROUS SULFATE (EC) 325 MG TAB PO (09:03)
[2019-02-11] MEDS: SOLIFENACIN 5 MG TAB PO (09:03)
[2019-02-11] MEDS: ERGOCALCIFEROL 50,000 UNIT CAP PO (09:03)
[2019-02-11] MEDS: METHYLPREDNISOLONE 40 MG INJ IV (09:04)
[2019-02-11] MEDS: ASPIRIN (EC) 81 MG TAB PO (09:04)
[2019-02-11] MEDS: AMLODIPINE 10 MG TAB PO (09:04)
[2019-02-11] MEDS: ISOSORBIDE MONONITRATE(SR)30 MG TAB PO (09:04)
[2019-02-11] MEDS: RIVAROXABAN 10 MG TABLET PO (09:04)
[2019-02-11] MEDS: ACCU-CHEK XX ×5 (10:00→20:38)
[2019-02-11] MEDS: FLUTICASONE/VILANTEROL 200-25 INH DEVICE INH (10:00)
[2019-02-11] MEDS: CALCITRIOL 1 MCG INJ IV (11:48)
[2019-02-11] MEDS: TIOTROPIUM 18 MCG CAPSULE INHA DEV INH (11:48)
[2019-02-11 14:06] LABS: TROPONIN-I < 0.012 ng/ml (0.000-0.120)
[2019-02-11] MEDS: CALCIUM CARBONATE 1.25 GM TAB GTB ×3 (15:13→20:53)
[2019-02-11] MEDS: MAGNESIUM SULFATE 4 GM/100 ML 100 ML IVPB (15:13)
[2019-02-11] MEDS: NA PHOSPHATE/BIPHOS 133 ML ENEMA PR (16:00)
[2019-02-11] MEDS: QUETIAPINE 100 MG TAB PO (20:41)
[2019-02-11] MEDS: ATORVASTATIN 40 MG TAB PO (20:41)
[2019-02-11] MEDS: POLYETHYLENE GLYCOL 17 GM PACKET PO (20:41)
[2019-02-11] MEDS: MONTELUKAST 10 MG TAB PO (20:43)
[2019-02-11] MEDS: CALCITRIOL 0.25 MCG CAP PO (20:43)
[2019-02-11] MEDS: ZOLPIDEM 5 MG TAB PO (20:49)
[2019-02-11] MEDS: DOCUSATE SODIUM 250 MG CAP PO (21:50)
[2019-02-11] MEDS: LEVOFLOXACIN 500MG/D5W (PMX) 100 ML IVPB (22:46)
[2019-02-11] MEDS: NITROGLYCERIN (SL) 0.4 MG TAB SL ×2 (22:50→23:24)
[2019-02-11] MEDS: morphine 2 MG INJ IV (23:03)
[2019-02-12] MEDS ORDERED: traMADol 50 MG TAB PO (00:30)
[2019-02-12] MEDS ORDERED: ACETAMINOPHEN 500 MG TAB PO (00:30)
[2019-02-12 06:10] LABS: ADD MAN DIFF? NO
[2019-02-12 06:17] LABS: WHITE BLOOD COUNT 11.9 10^3/ul (4.8-10.8)
[2019-02-12 06:17] LABS: BASOPHILS % 0.1 % (0.0-2.0); EOSINOPHILS % 0.1 % (0.0-7.0); HEMATOCRIT 37.4 % (37.0-47.0); HEMOGLOBIN 12.4 g/dl (12.0-16.0); LYMPHOCYTES # 2.6 10^3/ul (0.8-2.9); LYMPHOCYTES % 21.5 % (15.0-51.0); MEAN CORPUSCULAR HEMOGLOBIN 33.2 pg (29.0-33.0); MEAN CORPUSCULAR HGB CONC 33.2 g/dl (32.0-37.0); MEAN PLATELET VOLUME 11.5 fl (7.4-10.4); MONOCYTE # 0.6 10^3/ul (0.3-0.9); MONOCYTES % 5.2 % (0.0-11.0); NEUTROPHIL # 8.6 10^3/ul (1.6-7.5); NEUTROPHILS % 72.3 % (39.0-77.0); PLATELET COUNT 234 10^3/UL (140-415); RED BLOOD COUNT 3.74 10^6/ul (4.20-5.40); RED CELL DISTRIBUTION WIDTH 12.8 % (11.5-14.5)
[2019-02-12 06:38] LABS: PHOSPHORUS 4.4 mg/dl (2.5-4.9)
[2019-02-12 06:38] LABS: MAGNESIUM 2.6 mg/dl (1.7-2.5)
[2019-02-12 06:39] LABS: ALANINE AMINOTRANSFERASE 26 IU/L (13-69); ALBUMIN 3.8 g/dl (3.3-4.9); ALBUMIN/GLOBULIN RATIO 1.26; ALKALINE PHOSPHATASE 43 IU/L (42-121); ANION GAP 9 (5-13); ASPARTATE AMINO TRANSFERASE 16 IU/L (15-46); BILIRUBIN,INDIRECT 0.6 mg/dl (0-1.1); BILIRUBIN,TOTAL 0.6 mg/dl (0.2-1.3); BLOOD UREA NITROGEN 24 mg/dl (7-20); CALCIUM 7.6 mg/dl (8.4-10.2); CARBON DIOXIDE 31 mmol/L (21-31); CHLORIDE 102 mmol/L (97-110); CREATININE 0.72 mg/dl (0.44-1.00); GLUCOSE 98 mg/dl (70-220); POTASSIUM 3.7 mmol/L (3.5-5.1); SODIUM 142 mmol/L (135-144); TOTAL PROTEIN 6.8 g/dl (6.1-8.1)
[2019-02-12] MEDS: LEVOTHYROXINE 125 MCG TAB PO (06:47)
[2019-02-12] MEDS: PANTOPRAZOLE (EC) 40 MG TAB PO (06:47)
[2019-02-12] MEDS: ACCU-CHEK XX ×6 (07:30→20:05)
[2019-02-12] MEDS: ALBUTEROL/IPRATROPIUM (NEB) 3 ML AMP HHN ×4 (08:00→23:22)
[2019-02-12 09:39] LABS: ANION GAP 14 (5-13); BLOOD UREA NITROGEN 24 mg/dl (7-20); CALCIUM 7.4 mg/dl (8.4-10.2); CARBON DIOXIDE 23 mmol/L (21-31); CHLORIDE 104 mmol/L (97-110); CREATININE 0.77 mg/dl (0.44-1.00); GLUCOSE 100 mg/dl (70-220); POTASSIUM 3.5 mmol/L (3.5-5.1); SODIUM 141 mmol/L (135-144)
[2019-02-12 09:51] LABS: TROPONIN-I < 0.012 ng/ml (0.000-0.120)
[2019-02-12 10:12] LABS: IONIZED CALCIUM 0.9 mmol/L (1.1-1.4)
[2019-02-12] MEDS: CALCITRIOL 0.25 MCG CAP PO ×2 (10:20→21:26)
[2019-02-12] MEDS: CALCIUM CARBONATE 1.25 GM TAB GTB ×2 (10:20→21:10)
[2019-02-12] MEDS: ASPIRIN (EC) 81 MG TAB PO (10:22)
[2019-02-12] MEDS: SOLIFENACIN 5 MG TAB PO (10:22)
[2019-02-12] MEDS: AMLODIPINE 10 MG TAB PO (10:25)
[2019-02-12] MEDS: DOCUSATE SODIUM 250 MG CAP PO ×2 (10:25→21:10)
[2019-02-12] MEDS: GABAPENTIN 400 MG CAP PO ×2 (10:26→21:11)
[2019-02-12] MEDS: METOPROLOL 25 MG TAB PO ×2 (10:26→21:11)
[2019-02-12] MEDS: POLYETHYLENE GLYCOL 17 GM PACKET PO ×2 (10:26→21:11)
[2019-02-12] MEDS: ISOSORBIDE MONONITRATE(SR)30 MG TAB PO (10:27)
[2019-02-12] MEDS: TIOTROPIUM 18 MCG CAPSULE INHA DEV INH (10:28)
[2019-02-12] MEDS: FLUTICASONE/VILANTEROL 200-25 INH DEVICE INH (10:28)
[2019-02-12] MEDS: morphine 2 MG INJ IV (10:29)
[2019-02-12] MEDS: RIVAROXABAN 10 MG TABLET PO (10:29)
[2019-02-12] MEDS: POTASSIUM PHOSPHATE 30 MM in SOD CHLORIDE 0.9% 250 ML IVPB (11:53)
[2019-02-12 15:11] LABS: TROPONIN-I < 0.012 ng/ml (0.000-0.120)
[2019-02-12] MEDS: ATORVASTATIN 40 MG TAB PO (21:10)
[2019-02-12] MEDS: QUETIAPINE 100 MG TAB PO (21:11)
[2019-02-12] MEDS: MONTELUKAST 10 MG TAB PO (21:12)
[2019-02-12] MEDS: ERGOCALCIFEROL 50,000 UNIT CAP PO (21:13)
[2019-02-12] MEDS: ZOLPIDEM 5 MG TAB PO (21:17)
[2019-02-12] MEDS: CALCITRIOL 1 MCG INJ IV (21:26)
[2019-02-12] MEDS: LEVOFLOXACIN 500MG/D5W (PMX) 100 ML IVPB (22:43)
[2019-02-13] MEDS: PANTOPRAZOLE (EC) 40 MG TAB PO (06:39)
[2019-02-13] MEDS: LEVOTHYROXINE 125 MCG TAB PO (06:39)
[2019-02-13 07:07] LABS: ALANINE AMINOTRANSFERASE 21 IU/L (13-69); ALBUMIN 3.5 g/dl (3.3-4.9); ALBUMIN/GLOBULIN RATIO 1.16; ALKALINE PHOSPHATASE 50 IU/L (42-121); ANION GAP 9 (5-13); ASPARTATE AMINO TRANSFERASE 15 IU/L (15-46); BILIRUBIN,INDIRECT 0.5 mg/dl (0-1.1); BILIRUBIN,TOTAL 0.5 mg/dl (0.2-1.3); BLOOD UREA NITROGEN 23 mg/dl (7-20); CARBON DIOXIDE 31 mmol/L (21-31); CHLORIDE 101 mmol/L (97-110); CREATININE 0.82 mg/dl (0.44-1.00); GLUCOSE 87 mg/dl (70-220); POTASSIUM 3.9 mmol/L (3.5-5.1); SODIUM 141 mmol/L (135-144); TOTAL PROTEIN 6.5 g/dl (6.1-8.1)
[2019-02-13] MEDS: ALBUTEROL/IPRATROPIUM (NEB) 3 ML AMP HHN ×2 (07:19→16:42)
[2019-02-13] MEDS: ACCU-CHEK XX ×6 (07:30→20:05)
[2019-02-13] MEDS: POLYETHYLENE GLYCOL 17 GM PACKET PO ×2 (09:00→21:00)
[2019-02-13] MEDS: METOPROLOL 25 MG TAB PO ×2 (09:00→21:05)
[2019-02-13] MEDS: FLUTICASONE/VILANTEROL 200-25 INH DEVICE INH (10:38)
[2019-02-13] MEDS: CALCIUM CARBONATE 1.25 GM TAB GTB ×2 (10:38→21:05)
[2019-02-13] MEDS: TIOTROPIUM 18 MCG CAPSULE INHA DEV INH (10:38)
[2019-02-13] MEDS: ASPIRIN (EC) 81 MG TAB PO (10:39)
[2019-02-13] MEDS: MAGNESIUM SULFATE 2 GM/50 ML 50 ML IVPB (10:39)
[2019-02-13] MEDS: DOCUSATE SODIUM 250 MG CAP PO ×2 (10:39→21:00)
[2019-02-13] MEDS: ISOSORBIDE MONONITRATE(SR)30 MG TAB PO (10:40)
[2019-02-13] MEDS: CALCITRIOL 0.25 MCG CAP PO ×2 (10:41→21:05)
[2019-02-13] MEDS: SOLIFENACIN 5 MG TAB PO (10:41)
[2019-02-13] MEDS: GABAPENTIN 400 MG CAP PO ×2 (10:41→21:04)
[2019-02-13] MEDS: AMLODIPINE 10 MG TAB PO (10:41)
[2019-02-13] MEDS: RIVAROXABAN 10 MG TABLET PO (10:42)
[2019-02-13] MEDS: REGADENOSON 0.4 MG/5 ML SYG (15:46)
[2019-02-13] MEDS: ERGOCALCIFEROL 50,000 UNIT CAP PO (17:44)
[2019-02-13] MEDS: ATORVASTATIN 40 MG TAB PO (21:04)
[2019-02-13] MEDS: QUETIAPINE 100 MG TAB PO (21:04)
[2019-02-13] MEDS: ZOLPIDEM 5 MG TAB PO (21:04)
[2019-02-13] MEDS: MONTELUKAST 10 MG TAB PO (21:05)
[2019-02-13] MEDS: ALBUTEROL 0.083% (NEB) 2.5 MG/3 ML AMP NEB (21:24)
[2019-02-13] MEDS: LEVOFLOXACIN 500MG/D5W (PMX) 100 ML IVPB (23:35)
[2019-02-14 06:16] LABS: PHOSPHORUS 4.9 mg/dl (2.5-4.9)
[2019-02-14 06:19] LABS: ALANINE AMINOTRANSFERASE 22 IU/L (13-69); ALBUMIN 3.4 g/dl (3.3-4.9); ALKALINE PHOSPHATASE 52 IU/L (42-121); ANION GAP 8 (5-13); ASPARTATE AMINO TRANSFERASE 15 IU/L (15-46); BILIRUBIN,INDIRECT 0.3 mg/dl (0-1.1); BILIRUBIN,TOTAL 0.3 mg/dl (0.2-1.3); BLOOD UREA NITROGEN 25 mg/dl (7-20); CARBON DIOXIDE 32 mmol/L (21-31); CHLORIDE 100 mmol/L (97-110); CREATININE 1.02 mg/dl (0.44-1.00); GLUCOSE 100 mg/dl (70-220); POTASSIUM 3.8 mmol/L (3.5-5.1); SODIUM 140 mmol/L (135-144)
[2019-02-14] MEDS: ACCU-CHEK XX ×6 (07:30→20:05)
[2019-02-14] MEDS: ALBUTEROL/IPRATROPIUM (NEB) 3 ML AMP HHN ×3 (07:43→17:13)
[2019-02-14] MEDS: METOPROLOL 25 MG TAB PO ×2 (09:00→20:40)
[2019-02-14] MEDS: LEVOTHYROXINE 125 MCG TAB PO (09:11)
[2019-02-14] MEDS: TIOTROPIUM 18 MCG CAPSULE INHA DEV INH (09:11)
[2019-02-14] MEDS: FLUTICASONE/VILANTEROL 200-25 INH DEVICE INH (09:11)
[2019-02-14] MEDS: PANTOPRAZOLE (EC) 40 MG TAB PO (09:11)
[2019-02-14] MEDS: CALCITRIOL 0.25 MCG CAP PO ×2 (09:12→20:37)
[2019-02-14] MEDS: GABAPENTIN 400 MG CAP PO ×2 (09:12→20:37)
[2019-02-14] MEDS: SOLIFENACIN 5 MG TAB PO (09:12)
[2019-02-14] MEDS: POLYETHYLENE GLYCOL 17 GM PACKET PO ×2 (09:12→20:37)
[2019-02-14] MEDS: ASPIRIN (EC) 81 MG TAB PO (09:12)
[2019-02-14] MEDS: RIVAROXABAN 10 MG TABLET PO (09:13)
[2019-02-14] MEDS: CALCIUM CARBONATE 1.25 GM TAB GTB ×2 (09:13→20:38)
[2019-02-14] MEDS: DOCUSATE SODIUM 250 MG CAP PO ×2 (09:13→20:36)
[2019-02-14] MEDS: AMLODIPINE 10 MG TAB PO (09:14)
[2019-02-14] MEDS: MAGNESIUM SULFATE 2 GM/50 ML 50 ML IVPB (09:16)
[2019-02-14] MEDS: MAGNESIUM CITRATE 300 ML BTL PO (15:00)
[2019-02-14] MEDS: BISACODYL 10 MG SUPP PR (16:35)
[2019-02-14] MEDS: CALCITRIOL 1 MCG INJ IV (16:36)
[2019-02-14] MEDS: MONTELUKAST 10 MG TAB PO (20:37)
[2019-02-14] MEDS: ATORVASTATIN 40 MG TAB PO (20:38)
[2019-02-14] MEDS: ZOLPIDEM 5 MG TAB PO (21:12)
[2019-02-14] MEDS: QUETIAPINE 100 MG TAB PO (21:12)
[2019-02-14] MEDS: LEVOFLOXACIN 500MG/D5W (PMX) 100 ML IVPB (23:16)
[2019-02-15] MEDS: ALBUTEROL/IPRATROPIUM (NEB) 3 ML AMP HHN ×2 (00:28→08:42)
[2019-02-15] MEDS: ACCU-CHEK XX ×3 (08:11→12:09)
[2019-02-15] MEDS: LEVOTHYROXINE 125 MCG TAB PO (08:32)
[2019-02-15] MEDS: PANTOPRAZOLE (EC) 40 MG TAB PO (08:33)
[2019-02-15] MEDS: FLUTICASONE/VILANTEROL 200-25 INH DEVICE INH (08:56)
[2019-02-15] MEDS: POLYETHYLENE GLYCOL 17 GM PACKET PO (08:56)
[2019-02-15] MEDS: CALCITRIOL 0.25 MCG CAP PO (08:57)
[2019-02-15] MEDS: GABAPENTIN 400 MG CAP PO (08:57)
[2019-02-15] MEDS: TIOTROPIUM 18 MCG CAPSULE INHA DEV INH (08:57)
[2019-02-15] MEDS: AMLODIPINE 10 MG TAB PO (08:58)
[2019-02-15] MEDS: CALCIUM CARBONATE 1.25 GM TAB PO ×2 (08:58→12:14)
[2019-02-15] MEDS: SOLIFENACIN 5 MG TAB PO (08:58)
[2019-02-15] MEDS: DOCUSATE SODIUM 250 MG CAP PO (08:58)
[2019-02-15] MEDS: RIVAROXABAN 10 MG TABLET PO (08:58)
[2019-02-15] MEDS: METOPROLOL 25 MG TAB PO (08:59)
[2019-02-15] MEDS: ASPIRIN (EC) 81 MG TAB PO (08:59)
[2019-02-15] MEDS: LEVOFLOXACIN 500MG/D5W (PMX) 100 ML IVPB (09:49)
== END 2019-02-15 12:20 | disposition home or self-care (01) | DRG 191 ==
LOC: E/R 17:52 → PP2 19:38
DX: J44.1 Chronic obstructive pulmonary disease with (acute) exacerbation (principal); N39.0 Urinary tract infection, site not specified; E87.2 Acidosis; J96.10 Chronic respiratory failure, unspecified whether with hypoxia or hypercapnia; E83.51 Hypocalcemia; E83.42 Hypomagnesemia; R32 Unspecified urinary incontinence; E11.9 Type 2 diabetes mellitus without complications; E03.9 Hypothyroidism, unspecified; K21.9 Gastro-esophageal reflux disease without esophagitis; L40.9 Psoriasis, unspecified; K14.6 Glossodynia; K59.00 Constipation, unspecified; Z91.19 Patient's noncompliance with other medical treatment and regimen; R43.9 Unspecified disturbances of smell and taste; F19.10 Other psychoactive substance abuse, uncomplicated; E89.2 Postprocedural hypoparathyroidism; Z87.891 Personal history of nicotine dependence
CPT/HCPCS: 36415; 71045; 78452; 80048; 80053; 81001; 82330; 82962; 83540; 83690; 83735; 83880; 84100; 84443; 84484; 85025; 86850; 86900; 86901; 87081; 87086; 87400; 93005; 93017; 93306; 94640; 94644; 94664; 96374; 99285-25